=== PATIENT | male | born 1980 | race Hispanic/Latino ===

== ENCOUNTER 2018-02-18 22:40 | Emergency (ER) | payer SELFPAY ==
[~2018-02-18] VITALS: Ht 170.2 cm; Wt 99.3 kg
[~2018-02-18 22:40] MED LIST: AMLODIPINE BESY10 MG PO; BENICAR20 MG PO; BENICAR40 MG PO; DEXILANT60 MG PO; EDARBYCLOR 40-1 EAC1 PO; HYDROCHLOROTH12.5 M1 PO; OMEPRAZOLE20 MG PO; Z.0.BENICAR HCT 201; Z.0.TRILIPIX135 MG PO
[2018-02-18 23:06] LABS: BASOPHILS # (AUTO) 0.1 (0.0-0.1); BASOPHILS % 0.5 % (0.0-1.0); EOSINOPHILS # (AUTO) 0.2 (0.0-0.4); HEMATOCRIT 42.4 % (38.2-49.6); HEMOGLOBIN 15.3 g/dL (14.0-18.0); LYMPHOCYTES # (AUTO) 3.8 (1.0-3.2); LYMPHOCYTES % 37.5 % (18.0-39.1); MEAN CORPUSCULAR HEMOGLOBIN 30.9 pg (28-32); MEAN CORPUSCULAR HGB CONC 36.1 g/dL (31-35); MEAN CORPUSCULAR VOLUME 85.7 fL (81-99); MONOCYTES # (AUTO) 0.9 (0.2-0.8); MONOCYTES % 8.9 % (4.4-11.3); NEUTROPHILS # (AUTO) 5.2 (2.1-6.9); NEUTROPHILS % 50.8 % (38.7-80.0); PLATELET COUNT 364 x10e3/uL (140-360); RED BLOOD COUNT 4.95 x10e6/uL (4.3-5.7); RED CELL DISTRIBUTION WIDTH 12.4 % (11.7-14.4)
--- NOTE | 2018-02-18 23:22 | Diagnostic Imaging Report ---
EXAM: CHEST 2 VIEWS, PA and lateral INDICATION: Chest pain COMPARISON: AP view of the chest August 13, 2012 FINDINGS: LINES/TUBES: None LUNGS: No consolidations or edema. PLEURA: No effusions or pneumothorax. HEART AND MEDIASTINUM: Normal size and contour. BONES AND SOFT TISSUES: No acute findings. IMPRESSION: No acute thoracic abnormality. Signed by: Dr. Niya Barajas M.D. on 02/18/2018 11:18 PM
[2018-02-18 23:29] LABS: ANION GAP 18.3 mmol/L (8-16); BLOOD UREA NITROGEN 15 mg/dL (7-26); BUN/CREATININE RATIO 11 (6-25); CALCIUM 9.3 mg/dL (8.4-10.2); CARBON DIOXIDE 23 mmol/L (22-29); CHLORIDE 103 mmol/L (98-107); CREATINE KINASE 746 IU/L (30-200); CREATININE, SERUM 1.32 mg/dL (0.72-1.25); EST GLOMERULAR FILTRATION RATE > 60 ML/MIN (60-); GLUCOSE 143 mg/dL (74-118); POTASSIUM 3.3 mmol/L (3.5-5.1); SODIUM 141 mmol/L (136-145)
[2018-02-19] MEDS ORDERED: SODIUM CHLORIDE 0.9% 1000ML 1,000 ML IV SCH (01:15)
== END 2018-02-19 03:29 | disposition home or self-care (01) ==
LOC: ER 22:40
DX: R05 Cough (principal); B34.9 Viral infection, unspecified
CPT/HCPCS: 36415; 71046; 80048; 82550; 82553; 84484; 85025; 93005; 99283; J7030

== ENCOUNTER → 2019-10-07 | Outpatient (CLI) | payer BC ==
[~2019-10-07] MED LIST changes: +ATIVAN1 MG PO; +DIATRIZOATE MEGL/DIATRIZOA SOD 30 ML BTL PO ONE; +PANTOPRAZOLE SO40 MG PO; +PROPRANOLOL HCL40 MG PO; +ZOCOR20 MG PO
[2019-10-07 17:09] LABS: BLOOD UREA NITROGEN 14 mg/dL (7-26); BUN/CREATININE RATIO 12 (6-25); CREATININE, SERUM 1.14 mg/dL (0.72-1.25); EST GLOMERULAR FILTRATION RATE > 60 ML/MIN (60-)
--- NOTE | 2019-10-07 18:07 | Diagnostic Imaging Report ---
EXAM: CT Abdomen and Pelvis WITH contrast INDICATION: ^[id number] ^[id number] ^LOWER ABD PAIN COMPARISON: Right upper quadrant ultrasound dated 06/17/2019 TECHNIQUE: Abdomen and pelvis were scanned utilizing a multidetector helical scanner from the lung base to the pubic symphysis after administration of IV contrast. Coronal and sagittal reformations were obtained. Dose modulation, iterative reconstruction, and/or weight based adjustment of the mA/kV was utilized to reduce the radiation dose to as low as reasonably achievable. Routine protocol was performed. Scan was performed when during portal venous phase. IV CONTRAST: 100 mL of Isovue-370 ORAL CONTRAST: Gastroview COMPLICATIONS: None RADIATION DOSE: Total DLP: 679.77 mGy*cm Estimated effective dose: (DLP x 0.015 x size factor) mSv CTDIvol has been reviewed. It is below the limits set by the Radiation Protocol Committee (RPC). FINDINGS: LINES and TUBES: None. LOWER THORAX: Small focal opacification or less likely a 0.8 cm nodule in posterior right lung base. Punctate left lower lobe nodule. HEPATOBILIARY: Hepatic steatosis. No focal hepatic lesions. No biliary ductal dilation. GALLBLADDER: No radio-opaque stones or sludge. No wall thickening. SPLEEN: No splenomegaly. PANCREAS: No focal masses or ductal dilatation. ADRENALS: No adrenal nodules KIDNEYS/URETERS: Kidneys enhance symmetrically. No hydronephrosis. No renal mass. Left renal subcentimeter hypodensities are too small to characterize. No stones. GI TRACT: No abnormal distention, wall thickening, or evidence of bowel obstruction. Mild sigmoid diverticulosis without evidence of diverticulitis. Appendix is normal. PELVIC ORGANS/BLADDER: Unremarkable. LYMPH NODES: No lymphadenopathy. Nonspecific 1.3 cm portacaval lymph node. VESSELS: Unremarkable. PERITONEUM / RETROPERITONEUM: No free air or fluid. BONES: Unremarkable. SOFT TISSUES: Unremarkable. IMPRESSION: 1. No acute inflammatory process in the abdomen/pelvis. 2. Mild sigmoid diverticulosis without evidence of diverticulitis. 3. Hepatic steatosis. 4. Small focal posterior right lung base opacification, could represent developing pneumonia in the appropriate clinical context. Less likely to represent a nodule. Signed by: Dr. Young Suarez MD on 10/07/2019 6:03 PM
== END ==
LOC: CT 16:21
PROVIDERS: ATTEND Internal Medicine Gastroenterology
DX: R10.30 Lower abdominal pain, unspecified (principal)
CPT/HCPCS: 36415; 74177; 82565; 84520

== ENCOUNTER → 2021-01-21 | Outpatient (CLI) | payer BC ==
[~2021-01-21] MED LIST changes: -DIATRIZOATE MEGL/DIATRIZOA SOD 30 ML BTL PO ONE
== END ==
LOC: RAD 11:09
PROVIDERS: ATTEND Family Medicine
DX: R06.02 Shortness of breath (principal); R07.89 Other chest pain; Z20.822 Contact with and (suspected) exposure to COVID-19
CPT/HCPCS: 71046

== ENCOUNTER 2022-06-16 19:21 | Emergency (ER) | payer BC, OTHER ==
[~2022-06-16] VITALS: Ht 172.7 cm; Wt 88.5 kg
[2022-06-16] MEDS ORDERED: PREDNISONE 20 MG TAB PO ONE (21:15)
[2022-06-16] MEDS ORDERED: CYCLOBENZAPRINE HCL 10 MG TAB PO ONE (21:15)
[2022-06-16] MEDS ORDERED: HYDROCODONE/APAP 5MG-325MG TAB PO ONE (21:15)
[2022-06-16] MEDS ORDERED: PREDNISONE50 MG PO (21:16)
[2022-06-16] MEDS ORDERED: METHOCARBAMOL750 MG PO (21:20)
[2022-06-16] MEDS ORDERED: HYDROCODON-ACE1 EA12 PO (21:21)
[2022-06-16] MEDS ORDERED: PREDNISONE 20 MG TAB ONE (21:32)
[2022-06-16] MEDS ORDERED: CYCLOBENZAPRINE HCL 10 MG TAB ONE (21:32)
[2022-06-16] MEDS ORDERED: HYDROCODONE/APAP 5MG-325MG TAB ONE (21:32)
== END 2022-06-16 21:46 | disposition home or self-care (01) ==
LOC: FSED 19:55
DX: R20.2 Paresthesia of skin (principal); M54.12 Radiculopathy, cervical region; M79.602 Pain in left arm; I10 Essential (primary) hypertension; E78.5 Hyperlipidemia, unspecified; F41.9 Anxiety disorder, unspecified
CPT/HCPCS: 99283; J7512

== ENCOUNTER 2025-03-22 22:21 | Emergency (ER) | payer BC ==
[~2025-03-22] VITALS: Ht 172.7 cm; Wt 87.1 kg
[~2025-03-22 22:21] MED LIST changes: +HYDROCODON-ACE1 EA12 PO; +METHOCARBAMOL750 MG PO; +PREDNISONE50 MG PO
[2025-03-22] MEDS ORDERED: HYDROXYZINE HCL25 MG PO (22:54)
[2025-03-22] MEDS: DIAZEPAM 2 MG TAB PO ONE (23:00)
[2025-03-22] MEDS: DIAZEPAM INJ 5 MG/ML 2 ML IM STA (23:11)
[2025-03-22] MEDS: DIAZEPAM INJ 5 MG/ML 2 ML IM ONE (23:14)
[2025-03-22 23:18] VITALS: BP 123/72; PULSE 88; RESP 18; TEMP 97.9
[2025-03-22 23:25] VITALS: PULSE 88; RESP 18; TEMP 97.9; O2SAT 97
== END 2025-03-22 23:27 | disposition home or self-care (01) ==
LOC: FSED 22:26
DX: R06.02 Shortness of breath (principal); F12.122 Cannabis abuse with intoxication with perceptual disturbance; R00.2 Palpitations; F41.9 Anxiety disorder, unspecified; R42 Dizziness and giddiness; I10 Essential (primary) hypertension; E78.5 Hyperlipidemia, unspecified; K21.9 Gastro-esophageal reflux disease without esophagitis; Z87.19 Personal history of other diseases of the digestive system
CPT/HCPCS: 99283; J3360